=== PATIENT | female | born 1985 | race Caucasian/White ===

== ENCOUNTER 2018-11-09 06:15 | Inpatient (IN) | payer BC, OTHER ==
[2018-11-06 09:40] VITALS: BMI 27.4
[2018-11-09] MEDS ORDERED: PROPOFOL 20 ML ONE ×12 (07:35→10:34)
[2018-11-09] MEDS ORDERED: SUCCINYLCHOLINE CHLORIDE 200 MG/10 ML VIAL ONE (07:39)
[2018-11-09] MEDS ORDERED: MIDAZOLAM HCL 2 MG/2 ML SINGLE DOSE VIAL ONE (07:40)
[2018-11-09] MEDS ORDERED: HEPARIN NA (PORCINE) 5,000 UNITS/ML 1ML VIAL ONE (07:52)
[2018-11-09] MEDS ORDERED: THROMBIN (BOVINE) 5,000 UNIT VIAL TP ONE ×2 (07:52→10:47)
[2018-11-09] MEDS ORDERED: BENZOIN TINCTURE SWABSTICK TP ONE (07:52)
[2018-11-09] MEDS ORDERED: ONDANSETRON 4 MG/2 ML VIAL IVPUSH PRN ×2 (07:59→11:55)
--- NOTE | 2018-11-09 08:34 | PN ---
Progress Note (short form) - Note Progress Note: 33F s/p C6-C7 anterior cervical discectomy and instrumented fusion POD #0. -Admit to ICU x 24 hrs. for airway observation; OK to discharge home or downgrade to floor 11/10/2018 if airway stable. -Maintain head of bed 45-60 degrees. -Pain medication: per anaesthesia team; oral meds (oxycodone preferred), no HULLER OPERATOR ; NO NSAID's. -DVT PPx: -Mechanical only: SMITA's, SCD's. -Post-op Ancef x 2 doses. -f/u AM labs. -Incentive spirometry. -PT/OT/Rehab, OOB. -WBAT B/L UE & LE. -d/c Copeland catheter at midnight; f/u TOV (8 hours max). -Keep dressing clean & dry. -No heavy lifting (>5 lbs), bending or twisting x 6 months post op. -Start with soft diet; advance diet as tolerated. -B/L UE & LE NV checks. -Care per ICU & primary medical hospitalist teams. -Discharge planning: f/u [facility] [place] office 11/19/2018; call for appointment; . Roosevelt Chinchilla MD (Orthopaedic Surgery).
--- NOTE | 2018-11-09 08:37 | OP ---
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 C6-C7 anterior cervical discectomy. 2. C6-C7 anterior instrumentation. 3. C6-C7 anterior arthrodesis. 4. Bone autograft. 5. Bone allograft. 6. Intra-operative neural monitoring. 7. Intra-operative biplanar fluoroscopy Post-Operative Diagnosis: Same as Pre-op Surgeon: Roosevelt Chinchilla Caterpillar Operator: Leonardo Chinchilla Anesthesiologist/FELT HAT FLANGING OPERATOR: Amena Jacques Anesthesia: General Specimens Removed: C6-C7 disc Estimated Blood Loss (mls): 20 Fluid Volume Replaced (mls): 1,000 (Crystalloid) Operative Report Dictated: Yes
[2018-11-09] MEDS ORDERED: VANCOMYCIN 1,000 MG VIAL (RESTRICTED TO ID ONLY) ONE (09:00)
[2018-11-09] MEDS ORDERED: VANCOMYCIN 1,000 MG VIAL (RESTRICTED TO ID ONLY) IVPB ONE (09:00)
[2018-11-09] MEDS ORDERED: ceFAZolin SODIUM 1 GM VIAL ONE ×2 (09:16→09:57)
[2018-11-09] MEDS ORDERED: DEXAMETHASONE SOD PHOSPHATE 4 MG/1 ML VIAL ONE (09:25)
[2018-11-09] MEDS ORDERED: ONDANSETRON 4 MG/2 ML VIAL ONE (09:25)
[2018-11-09] MEDS ORDERED: ceFAZolin SODIUM 1 GM VIAL IVPB ONE (09:27)
[2018-11-09] MEDS ORDERED: HYDROmorphone HCl 2 MG/ML VIAL ONE (10:07)
[2018-11-09] MEDS ORDERED: TRANEXAMIC ACID 1000 MG/10 ML VIAL ONE (10:20)
[2018-11-09] MEDS ORDERED: GELATIN, ABSORBABLE 12-7MM EACH SPONGE TP ONE (10:47)
[2018-11-09] MEDS ORDERED: ADENOSINE 6 MG/2 ML VIAL IVPUSH ONE (11:50)
[2018-11-09] MEDS ORDERED: oxyCODONE HCL 5 MG TABLET PO PRN (11:55)
[2018-11-09] MEDS ORDERED: LACTATED RINGERS SOLUTION 1,000 ML IV SCH (12:00)
[2018-11-09] MEDS ORDERED: ACETAMINOPHEN 1000 MG/100 ML VIAL (NON FORMULARY) IVPB PRN (12:30)
[2018-11-09] MEDS: LACTATED RINGERS SOLUTION 1,000 ML IV SCH ×2 (12:30→22:50)
--- NOTE | 2018-11-09 13:01 | CONSULT ---
Consult Consult Specialty:: ICU Referred by:: Dr. Chinchilla Reason for Consultation:: Post-op care - History of Present Illness History of Present Illness: 33 yr old woman with bipolar disorder POD#0 from cervical disectomy being monitered in the ICU for any airway instability. Pt was extubated in the - Past Medical History ...LMP: 10/21/18 - Alcohol/Substance Use Hx Alcohol Use: Yes (SOCIAL) - Smoking History Smoking history: Never smoked Home Medications - Allergies Allergies/Adverse Reactions: Allergies Allergy/AdvReac Type Severity Reaction Status Date / Time No Known Allergies Allergy Verified 11/06/18 09:40 - Home Medications Home Medications: Ambulatory Orders Lamotrigine [Lamictal] 200 mg PO HS 11/06/18 Lurasidone HCl [Latuda] 40 mg PO HS 11/06/18 Multivitamin [Multiple Vitamins] 1 each PO HS 11/06/18 Physical Exam Vital Signs: Vital Signs Temperature 98 F 11/09/18 07:12 Pulse Rate 70 11/09/18 07:12 Respiratory Rate 18 11/09/18 07:12 Blood Pressure 121/67 11/09/18 07:12 O2 Sat by Pulse Oximetry (%) 98 11/09/18 07:12
--- NOTE | 2018-11-09 13:46 | OP ---
DATE OF OPERATION: 11/09/2018 SURGEON: Roosevelt Chinchilla MD TRUCK DRIVER HEAVY: Leonardo Chinchilla MD PREOPERATIVE DIAGNOSIS: 1. C6-C7 intervertebral disk disorder (herniation) with associated A. Myelopathy. B. Radiculopathy. 2. Cervical spinal stenosis with neurogenic claudication. 3. Cervical kyphosis. 4. Segmental instability. 5. Disk osteophyte complex C6-C7. POSTOPERATIVE DIAGNOSIS: 1. C6-C7 intervertebral disk disorder (herniation) with associated A. Myelopathy. B. Radiculopathy. 2. Cervical spinal stenosis with neurogenic claudication. 3. Cervical kyphosis. 4. Segmental instability. 5. Disk osteophyte complex C6-C7 SURGICAL PROCEDURE: 1. C6-C7 discectomy. 2. C6, C7 partial corpectomies. 3. C6-C7 anterior arthrodesis. 4. Insertion of biomechanical device C6-C7. 5. C6-C7 anterior instrumentation. 6. Bone autograft. 7. Bone allograft. 8. Intraoperative biplanar fluoroscopy. 9. Intraoperative neural monitoring. ANESTHESIA: General endotracheal tube anesthesia. POSITION: Supine. INCISION: Right oblique anterior at level of cricothyroid interval. ESTIMATED BLOOD LOSS: 20cc. INTRAVENOUS FLUID: Crystalloid, 1L. SPECIMENS: C6-C7 disc. DRAINS: None. COMPLICATIONS: None. URINE OUTPUT: See anesthesia record. BACTERIOLOGY: None. CLOSURE: 2-0 Vicryl and 3-0 Biosyn absorbable suture. INDICATIONS: The patient is a 33-year-old female who was indicated for anterior cervical decompression and instrumented fusion to prevent the progression of already worsening neurological decline. The patient was identified in the holding area by her arm band. A long discussion was held with the patient (in the presence of her family) regarding the risks, benefits, and alternatives of the above- named procedure. The risks include, but are not limited to: Pain, bleeding, infection, damage to surrounding structures (including nerves, blood vessels, skin, ligaments, tendons, and bone), dysphagia, dysphonia, nerve palsy, wound complications, pseudarthrosis, failure of fusion, failure of hardware/implants/ reduction, need for further surgery, blood clots, myocardial infarction, pulmonary embolism, cerebrovascular event, anesthesia complications, neurological injury, loss of function, and . Benefits as mentioned above. Alternatives include no surgery. All questions were answered. The patient understood and agreed to the procedure. Informed consent was obtained, witnessed, and verified. The patient was taken to the operating room after being seen by the anesthesia and nursing staff. PROCEDURE: The patient was brought into the operating room, placed on the OR table and secured with a safety strap. Consent and the operative site was again verified with the patient and nursing and anesthesia staff. Anesthesia was then administered without complications including 2 g of IV Ancef, 1 g of IV vancomycin, and 1 g of TXA. A time-out was then done led by , the attending surgeon. The intra-operative neural monitoring team measured pre-positional SSEP & MEP readings. The patient was positioned in the supine position with arms tucked and placed under gentle traction using tape over her shoulders. All bony prominences were very well padded. A bump was placed beneath the scapulae to facilitate extension of the patients neck. The cricothyroid interval was palpated, and a deep neck crease in the lines of Filippo at this level was targeted for incision. A C-arm fluoroscopy unit was positioned perpendicularly to the table and maintained at the level of the head, except when needed. Intra-operative neural monitoring revealed no change between pre- and post- positional SSEP & MEP baseline readings. The operative site was then prepped and draped in the standard sterile fashion using betadine prep and scrub, wiped off with alcohol, and Duraprep applied. Pre-operative imaging was available for intra-operative evaluation. Time-out was again done, and the case began. An oblique anterior incision was made on the right side of the patients neck in the lines of Filippo in standard fashion. Dissection was carried through the investing layer of fascia and finger palpation was used to create a plane lateral to the strap muscles between the carotid sheath and the viscera. Next, the esophagus and trachea were visualized as was the carotid sheath. Hand-held retractors were used to retract these structures safely out of the way, allowing direct access to the anterior cervical spine. The prevertebral fascia overlying the anterior cervical spine was then split using peanut swabs. An 18-gauge spinal needle was bent and used to localize the C6-C7 disc space under fluoroscopy. This helped us target the indicated surgical level. Next, the medial borders of the Longus Coli musculature were gently released over the anterolateral borders of the vertebral bodies and disc spaces using monopolar electrocautery. A self-retaining retractor system was used with the teeth of the blades retracting the bellies of the longus coli muscles, and with the retractors themselves safely retracting the carotid sheath laterally and viscera medially. One 12mm Lincoln pin was then placed into the center of the vertebral body of C6 another into the middle of the C7 vertebral body. The Lincoln pin placement was confirmed via fluorscopy. A Lincoln pin distractor system was applied with no distraction at this stage. Additionally, the distractor barrels served as superior and inferior soft tissue retractors. The microscope was then introduced. Using monopolar electrocautery, the annulus of the C6-C7 disc was incised. The disc was morselized using a curette and excised using a pituitary rongeur. Next, a 40mm smooth italia-tipped alissa was used to perform partial corpectomies of the caudal C6 vertebral body and the cephalad C7 vertebral body. This granted us access to the disc fragment that had migrated behind the C7 vertebral body. The resection of most remaining bone, and the posterior longitudinal ligament (PLL), was achieved utilizing Kerrison rongeur upcuts. A small, angled, ball-tipped probe was utilized to ensure that all PLL complex was free from adhesion to the theca prior to excision. There was no evidence of OPLL. The ball-tipped probe was also used to ensure that the bilateral C6-C7 neuroforaminae were patent. Our decompression of the cervical spine was successfully achieved. At this point, gentle distraction was applied to the Lincoln pin distractor. Next, trial implants were placed into the defect space and a size 9 RTI Fortilink cage was then selected to fit the distracted space. The cage was filled with a combination of autologous bone shavings and demineralized bone matrix putty (IE bone allograft). The cage was then gently tapped into position. This completed the anterior arthrodesis. Lincoln pin distraction was released, allowing ligamentotaxis to provide a snug interference fit of the cage. This was ensured by using a cage-sparks. A 16- mm plate was utilized with 2 proximal and 2 distal screws measuring 12 mm to provide solid fixation. This, too, was demonstrated with a plate-sparks once all instrumentation was satisfactorily seated. The screws were then locked using the plate-screw locking mechanism. Fluoroscopic images in the AP and lateral plane showed implants to be in good position and with good overall alignment of the cervical spine. Copious irrigation was performed, hemostasis was assured, and the wound was closed primarily using 2-0 Vicryl and 3-0 Biosyn sutures. A sterile compressive dressing was applied. Sponge and needle counts were correct at the end of the case, and I, the attending surgeon, was present and scrubbed throughout the case. The patient was then extubated by the anesthesia staff without incident or complications and was then transferred to the recovery room in stable condition having tolerated the procedure well. OVERALL COMMENTS: Overall the case went well. MEP & SSEP signals improved shortly after the decompression was achieved. Roosevelt Chinchilla MD. [id number] MTDD
--- NOTE | 2018-11-09 14:09 | PN ---
Physical Exam: SUBJECTIVE: Patient seen and examined in the ICU s/p surgery. OBJECTIVE: Vital Signs Period Temp Pulse Resp BP Sys/Hall Pulse Ox Last 24 Hr 97.9 F-98.7 F 70-85 14-18 121-141/67-86 98-100 GENERAL: The patient is awake, alert, and fully oriented, in no acute distress. HEAD: Normal with no signs of trauma. EYES: PERRL, extraocular movements intact, sclera anicteric, conjunctiva clear. No ptosis. ENT: surgical dressing intact NECK: Trachea midline, full range of motion, supple. LUNGS: Breath sounds equal, clear to auscultation bilaterally, no wheezes HEART: Regular rate and rhythm ABDOMEN: Soft, nontender, nondistended, normoactive bowel sounds EXTREMITIES: no edema. NEUROLOGICAL: Normal speech, gait not observed. PSYCH: Normal mood, normal affect. SKIN: Warm, dry, normal turgor, no rashes or lesions noted Laboratory Results - last 24 hr 11/09/18 11/09/18 11/09/18 06:36 06:36 08:00 Serum , Qual Negative Blood Type AB POSITIVE AB POSITIVE Antibody Screen Negative Active Medications Generic Name Dose Route Start Last Admin Trade Name Freq PRN Reason Stop Dose Admin Acetaminophen 1,000 mg 11/09/18 12:30 Ofirmev Injection - IVPB Q6H PRN PAIN OR FEVER Hydromorphone HCl 1 mg 11/09/18 12:30 Dilaudid Vial - IVPB Q4H PRN PAIN LEVEL 6-10 Lactated Ringer's 1,000 mls @ 75 mls/hr 11/09/18 08:00 Lactated Ringers Solution IV ASDIR SERENA Cefazolin Sodium 1 gm in 50 mls @ 100 mls/hr 11/09/18 16:00 Ancef 1 Gm Premixed Ivpb - IVPB 11/10/18 00:29 Q8H SERENA Lamotrigine 200 mg 11/09/18 22:00 Lamictal - PO HS SERENA Lurasidone HCl 40 mg 11/09/18 22:00 Latuda - PO HS SERENA Ondansetron HCl 4 mg 11/09/18 07:59 Zofran Injection IVPUSH Q6H PRN NAUSEA AND/OR VOMITING Oxycodone HCl 5 mg 11/09/18 11:55 Roxicodone - PO Q4H PRN PAIN LEVEL 1-5 Oxycodone HCl 10 mg 11/09/18 11:55 Roxicodone - PO Q4H PRN PAIN LEVEL 6-10 ASSESSMENT/PLAN: Patient is a 33 year old female s/p c6-c7 anterior cervical discectomy and instrumened fusion POD #0. Currently in ICU for airway monitoring. Surgery C6-C7 anterior cervical discectomy and instrumented fusion POD #0 Per surgery, maintain HOG 45-60 degrees Post op antibiotics x 2 doses Encourage incentive spirometer bowel regimen WBAT as tolerated d/c sozua per surgery No NSAIDs. soft diet as tolerated fen tolerating PO soft diet labs in a.m. prophy SCDs Discharge planning in a.m. likely with a surgical follow up with Dr. Chinchilla. Visit type - Emergency Visit Emergency Visit: Yes ED Registration Date: 11/09/18 Care time: The patient presented to the Emergency Department on the above date and was hospitalized for further evaluation of their emergent condition. - New Patient This patient is new to me today: Yes Date on this admission: 11/09/18 - Critical Care Critical Care patient: No - Discharge Referral Referred to [facility] Med P.C.: No
[2018-11-09] MEDS: oxyCODONE HCL 5 MG TABLET PO PRN (15:29)
[2018-11-09] MEDS: CEFAZOLIN 1 GM/D5W 1 GM/50 ML BAG IVPB SCH (16:46)
[2018-11-09] MEDS ORDERED: LURASIDONE HCL 40 MG TABLET PO SCH (22:00)
[2018-11-09] MEDS: HYDROmorphone HCl 2 MG/ML VIAL IVPB PRN (22:46)
[2018-11-10] MEDS: CEFAZOLIN 1 GM/D5W 1 GM/50 ML BAG IVPB SCH (00:21)
[2018-11-10] MEDS: DOCUSATE SODIUM 100 MG CAPSULE (FP) PO SCH ×3 (05:54→21:26)
[2018-11-10 06:51] LABS: BASO % 0.1 % (0-2.0); HEMOGLOBIN 11.5 GM/dL (10.7-15.3); LYMPH % 12.5 % (8-40); MCH 27.3 pg (25.7-33.7); MCHC 32.9 g/dl (32.0-36.0); MEAN CELL VOLUME 83.1 fl (80-96); MEAN PLT VOLUME 10.4 fl (7.5-11.1); MONO % 5.4 % (3.8-10.2); PLATELET COUNT 205 K/MM3 (134-434); RBC 4.21 M/mm3 (3.60-5.2); RDW 12.8 % (11.6-15.6); WHITE BLOOD COUNT 14.1 K/mm3 (4.0-10.0)
[2018-11-10 07:35] LABS: ANION GAP 7 MMOL/L (8-16); BLOOD UREA NITROGEN 8 mg/dL (7-18); CALCIUM 8.5 mg/dL (8.5-10.1); CHLORIDE 104 mmol/L (98-107); CO2 27 mmol/L (21-32); CREATININE 0.7 mg/dL (0.55-1.3); GLUCOSE,RANDOM 96 mg/dL (74-106); MAGNESIUM 2.2 mg/dL (1.8-2.4); PHOSPHOROUS 3.7 mg/dL (2.5-4.9); POTASSIUM 4.1 mmol/L (3.5-5.1); SODIUM 139 mmol/L (136-145)
[2018-11-10] MEDS: HYDROmorphone HCl 2 MG/ML VIAL IVPB PRN (07:39)
[2018-11-10] MEDS: LACTATED RINGERS SOLUTION 1,000 ML IV SCH (08:00)
--- NOTE | 2018-11-10 08:59 | PN ---
Physical Exam: SUBJECTIVE: Patient seen this morning and reports she has some pain at the site. She is able to tolerate food and walking. No other complaints. OBJECTIVE: Vital Signs Temperature 98.4 F 11/10/18 10:00 Pulse Rate 68 11/10/18 10:00 Respiratory Rate 14 11/10/18 10:00 Blood Pressure 123/61 11/10/18 10:00 O2 Sat by Pulse Oximetry (%) 100 11/10/18 09:00 GENERAL: The patient is awake, alert, and fully oriented, in no acute distress. HEAD: head atrauamtic EYES: PERRL, extraocular movements intact, sclera anicteric, conjunctiva clear. No ptosis. NECK: collar around neck LUNGS: Breath sounds equal, clear to auscultation bilaterally, HEART: Regular rate and rhythm, S1, S2 without murmur, rub or gallop. ABDOMEN: Soft, nontender, nondistended, normoactive bowel sounds, EXTREMITIES: 2+ pulses, warm, well-perfused, no edema. NEUROLOGICAL: speech normal, B/L LE sensation intact, ROM intact PSYCH: Normal mood, normal affect. SKIN: Warm, dry, normal turgor, no rashes or lesions noted CBCD WBC 14.1 K/mm3 (4.0-10.0) H 11/10/18 05:30 RBC 4.21 M/mm3 (3.60-5.2) 11/10/18 05:30 Hgb 11.5 GM/dL (10.7-15.3) 11/10/18 05:30 Hct 35.0 % (32.4-45.2) 11/10/18 05:30 MCV 83.1 fl (80-96) 11/10/18 05:30 MCHC 32.9 g/dl (32.0-36.0) 11/10/18 05:30 RDW 12.8 % (11.6-15.6) 11/10/18 05:30 Plt Count 205 K/MM3 (134-434) 11/10/18 05:30 MPV 10.4 fl (7.5-11.1) 11/10/18 05:30 CMP Sodium 139 mmol/L (136-145) 11/10/18 05:30 Potassium 4.1 mmol/L (3.5-5.1) 11/10/18 05:30 Chloride 104 mmol/L (98-107) 11/10/18 05:30 Carbon Dioxide 27 mmol/L (21-32) 11/10/18 05:30 Anion Gap 7 MMOL/L (8-16) L 11/10/18 05:30 BUN 8 mg/dL (7-18) 11/10/18 05:30 Creatinine 0.7 mg/dL (0.55-1.3) 11/10/18 05:30 Creat Clearance w eGFR 97.60 (>60) 11/10/18 05:30 Calcium 8.5 mg/dL (8.5-10.1) 11/10/18 05:30 Active Medications Acetaminophen (Ofirmev Injection -) 1,000 mg IVPB Q6H PRN PRN Reason: PAIN OR FEVER Docusate Sodium (Colace -) 100 mg PO TID [facility] Last Admin: 11/10/18 05:54 Dose: 100 mg Hydromorphone HCl (Dilaudid Vial -) 1 mg IVPB Q4H PRN PRN Reason: PAIN LEVEL 6-10 Last Admin: 11/10/18 07:39 Dose: 1 mg Lactated Ringer's (Lactated Ringers Solution) 1,000 mls @ 75 mls/hr IV ASDIR [facility] Last Admin: 11/09/18 22:50 Dose: 75 mls/hr Lamotrigine (Lamictal -) 200 mg PO [facility] Last Admin: 11/09/18 21:20 Dose: Not Given Lurasidone HCl (Latuda -) 40 mg PO [facility] Last Admin: 11/09/18 21:20 Dose: Not Given Ondansetron HCl (Zofran Injection) 4 mg IVPUSH Q6H PRN PRN Reason: NAUSEA AND/OR VOMITING Oxycodone HCl (Roxicodone -) 5 mg PO Q4H PRN PRN Reason: PAIN LEVEL 1-5 Last Admin: 11/09/18 20:35 Dose: 5 mg Oxycodone HCl (Roxicodone -) 10 mg PO Q4H PRN PRN Reason: PAIN LEVEL 6-10 Last Admin: 11/09/18 15:29 Dose: 10 mg Polyethylene Glycol (Miralax (For Daily Use) -) 17 gm PO DAILY [facility] Senna (Senna -) 2 tab PO HS SERENA ASSESSMENT/PLAN: Patient is a 33 y/o female with a history of bipolar disorder who is post op for cervical discectomy. Neuro - A&O x3 - cervical discectomy C6-C7 - pain control with dilaudid and oxycodone - patient able to walk with PT Cardio - vitals stable Pulm - stable - continue incentive spirometer GI - tolerating diet - continue bowel regimine Heme - SCD's for DVT ppx Dispo: able to walk with PT, can be transferred to med/surg Visit type - Emergency Visit Emergency Visit: No - New Patient This patient is new to me today: Yes Date on this admission: 11/10/18 - Critical Care Critical Care patient: Yes Total Critical Care Time (in minutes): 35 Critical Care Statement: The care of this patient involved high complexity decision making to prevent further life threatening deterioration of the patient 's condition and/or to evaluate & treat vital organ system(s) failure or risk of failure.
[2018-11-10] MEDS ORDERED: POLYETHYLENE GLYCOL 3350 119 GM BTL PO SCH (10:00)
--- NOTE | 2018-11-10 10:18 | PN ---
Progress Note, Physician Chief Complaint: s/p ACDF under general anesthesia History of Present Illness: post op day one - Current Medication List Current Medications: Active Medications Acetaminophen (Ofirmev Injection -) 1,000 mg IVPB Q6H PRN PRN Reason: PAIN OR FEVER Docusate Sodium (Colace -) 100 mg PO TID [facility] Last Admin: 11/10/18 05:54 Dose: 100 mg Hydromorphone HCl (Dilaudid Vial -) 1 mg IVPB Q4H PRN PRN Reason: PAIN LEVEL 6-10 Last Admin: 11/10/18 07:39 Dose: 1 mg Lactated Ringer's (Lactated Ringers Solution) 1,000 mls @ 75 mls/hr IV ASDIR [facility] Last Admin: 11/10/18 08:00 Dose: 75 mls/hr Lamotrigine (Lamictal -) 200 mg PO [facility] Last Admin: 11/09/18 21:20 Dose: Not Given Lurasidone HCl (Latuda -) 40 mg PO [facility] Last Admin: 11/09/18 21:20 Dose: Not Given Ondansetron HCl (Zofran Injection) 4 mg IVPUSH Q6H PRN PRN Reason: NAUSEA AND/OR VOMITING Oxycodone HCl (Roxicodone -) 5 mg PO Q4H PRN PRN Reason: PAIN LEVEL 1-5 Last Admin: 11/09/18 20:35 Dose: 5 mg Oxycodone HCl (Roxicodone -) 10 mg PO Q4H PRN PRN Reason: PAIN LEVEL 6-10 Last Admin: 11/09/18 15:29 Dose: 10 mg Polyethylene Glycol (Miralax (For Daily Use) -) 17 gm PO DAILY [facility] Last Admin: 11/10/18 09:36 Dose: 17 grams Senna (Senna -) 2 tab PO [facility] - Objective Vital Signs: Vital Signs Temperature 97 F L 11/10/18 02:50 Pulse Rate 73 11/10/18 09:12 Respiratory Rate 17 11/10/18 09:12 Blood Pressure 117/67 11/10/18 09:12 O2 Sat by Pulse Oximetry (%) 100 11/10/18 09:00 Constitutional: Yes: Well Nourished Cardiovascular: Yes: WNL Respiratory: Yes: WNL Gastrointestinal: Yes: WNL Labs: CBC, BMP 11/10/18 05:30 11/10/18 05:30 Assessment/Plan Patient pain controlled by IV analgesia, po did not work according to patient. Advised patient to take PO analgesia before pain gets too severe and ask for IV for breakthrough. Also suggest adding Tylenol for adjunct pain control. No nausea or other adverse anesthetic complications. Depf of anesthesia will sign off care at this time.
--- NOTE | 2018-11-10 12:20 | PN ---
Teaching Attending Note Name of Resident: Danya Giang ATTENDING PHYSICIAN STATEMENT I saw and evaluated the patient. I reviewed the resident's note and discussed the case with the resident. I agree with the resident's findings and plan as documented. SUBJECTIVE: Patient seen and examined in the ICU. Awake and alert. Pain seems controlled. Soft collar is in place. OBJECTIVE: Intake & Output 11/07/18 11/08/18 11/09/18 11/10/18 23:59 23:59 23:59 23:59 Intake Total 2440 1000 Output Total 1220 700 Balance 1220 300 Weight 170 lb Last Vital Signs Temp Pulse Resp BP Pulse Ox 98.4 F 68 14 123/61 100 11/10/18 10:00 11/10/18 10:00 11/10/18 10:00 11/10/18 10:00 11/10/18 09:00 Active Medications Acetaminophen (Ofirmev Injection -) 1,000 mg IVPB Q6H PRN PRN Reason: PAIN OR FEVER Docusate Sodium (Colace -) 100 mg PO TID [facility] Last Admin: 11/10/18 05:54 Dose: 100 mg Hydromorphone HCl (Dilaudid Vial -) 1 mg IVPB Q4H PRN PRN Reason: PAIN LEVEL 6-10 Last Admin: 11/10/18 07:39 Dose: 1 mg Lactated Ringer's (Lactated Ringers Solution) 1,000 mls @ 75 mls/hr IV ASDIR [facility] Last Admin: 11/10/18 08:00 Dose: 75 mls/hr Lamotrigine (Lamictal -) 200 mg PO [facility] Last Admin: 11/09/18 21:20 Dose: Not Given Lurasidone HCl (Latuda -) 40 mg PO [facility] Last Admin: 11/09/18 21:20 Dose: Not Given Ondansetron HCl (Zofran Injection) 4 mg IVPUSH Q6H PRN PRN Reason: NAUSEA AND/OR VOMITING Oxycodone HCl (Roxicodone -) 5 mg PO Q4H PRN PRN Reason: PAIN LEVEL 1-5 Last Admin: 11/09/18 20:35 Dose: 5 mg Oxycodone HCl (Roxicodone -) 10 mg PO Q4H PRN PRN Reason: PAIN LEVEL 6-10 Last Admin: 11/09/18 15:29 Dose: 10 mg Polyethylene Glycol (Miralax (For Daily Use) -) 17 gm PO DAILY [facility] Last Admin: 11/10/18 09:36 Dose: 17 grams Senna (Senna -) 2 tab PO HS [facility] GENERAL: awake, alert, and fully oriented, in no acute distress. HEAD: head atrauamtic EYES: sclera anicteric, conjunctiva clear. No ptosis. NECK: collar around neck LUNGS: Breath sounds equal, clear to auscultation bilaterally, HEART: Regular rate and rhythm, S1, S2 without murmur, rub or gallop. ABDOMEN: Soft, nontender, nondistended, normoactive bowel sounds, EXTREMITIES: 2+ pulses, warm, well-perfused, no edema. NEUROLOGICAL: speech normal, B/L LE sensation intact, ROM intact PSYCH: Normal mood, normal affect. SKIN: Warm, dry, normal turgor, no rashes or lesions noted Laboratory Results - last 24 hr 11/10/18 11/10/18 05:30 05:30 WBC 14.1 H RBC 4.21 Hgb 11.5 Hct 35.0 MCV 83.1 MCH 27.3 MCHC 32.9 RDW 12.8 Plt Count 205 MPV 10.4 Absolute Neuts (auto) 11.5 H Neutrophils % 82.0 Lymphocytes % 12.5 Monocytes % 5.4 Eosinophils % 0.0 Basophils % 0.1 Nucleated RBC % 0 Sodium 139 Potassium 4.1 Chloride 104 Carbon Dioxide 27 Anion Gap 7 L BUN 8 Creatinine 0.7 Creat Clearance w eGFR 97.60 Random Glucose 96 Calcium 8.5 Phosphorus 3.7 Magnesium 2.2 ASSESSMENT/PLAN: POD #1: Cervical discectomy C6-C7 Bipolar D/O Pain control O2 as needed Incentive Spirometry VTE prophylaxis PO as tolerated PT / ambulate Floor Dr Navarrete
[2018-11-10] MEDS: oxyCODONE HCL 5 MG TABLET PO PRN ×3 (12:24→21:24)
--- NOTE | 2018-11-10 16:03 | PATH ---
Surgical Pathology Report Patient Name: HILDA THOMASON [facility]. Rec. #: [id number] /Age/Gender: 1985 (Age: 33) / F Account: [id number] Location: [facility] Taken: 11/09/2018 Received: 11/09/2018 Reported: 11/10/2018 Physicians: Roosevelt Chinchilla M.D. Specimen(s) Received C6-C7 DISC Clinical History Cervical disc disorder Final Diagnosis INTERVERTEBRAL DISC, C6-7, EXCISION: PORTIONS OF INTERVERTEBRAL DISC, ALONG WITH SMALL FRAGMENTS OF BONE AND CARTILAGE. Electronically Signed Javan Santamaria M.D. Gross Description Received in formalin labeled "disc C6-C7," is a 3.0 x 2.3 x 0.4 cm aggregate of begum fragments of fibrocartilaginous tissue. The specimen is submitted in toto in one cassette. /11/09/2018 saudi/11/09/2018
--- NOTE | 2018-11-10 18:17 | PN ---
Physical Exam: SUBJECTIVE: Patient seen and examined 24HR events: -no acute events -OOB to chair OBJECTIVE: Vital Signs Period Temp Pulse Resp BP Sys/Hall Pulse Ox Last 24 Hr 97 F-98.6 F 63-92 14-24 108-134/61-83 100-100 GENERAL: The patient is awake, alert, and fully oriented, in no acute distress. HEAD: Normal with no signs of trauma. EYES: PERRL, extraocular movements intact, sclera anicteric, conjunctiva clear. No ptosis. ENT: Ears normal, nares patent, oropharynx clear without exudates, moist mucous membranes. NECK: Trachea midline, full range of motion, supple. LUNGS: Breath sounds equal, clear to auscultation bilaterally, no wheezes, no crackles, no accessory muscle use. HEART: Regular rate and rhythm, S1, S2 without murmur, rub or gallop. ABDOMEN: Soft, nontender, nondistended, normoactive bowel sounds, no guarding, no rebound, no hepatosplenomegaly, no masses. EXTREMITIES: 2+ pulses, warm, well-perfused, no edema. NEUROLOGICAL: Cranial nerves II through XII grossly intact. Normal speech, gait not observed. PSYCH: Normal mood, normal affect. SKIN: Warm, dry, normal turgor, no rashes or lesions noted Laboratory Results - last 24 hr 11/10/18 11/10/18 05:30 05:30 WBC 14.1 H RBC 4.21 Hgb 11.5 Hct 35.0 MCV 83.1 MCH 27.3 MCHC 32.9 RDW 12.8 Plt Count 205 MPV 10.4 Absolute Neuts (auto) 11.5 H Neutrophils % 82.0 Lymphocytes % 12.5 Monocytes % 5.4 Eosinophils % 0.0 Basophils % 0.1 Nucleated RBC % 0 Sodium 139 Potassium 4.1 Chloride 104 Carbon Dioxide 27 Anion Gap 7 L BUN 8 Creatinine 0.7 Creat Clearance w eGFR 97.60 Random Glucose 96 Calcium 8.5 Phosphorus 3.7 Magnesium 2.2 Active Medications Generic Name Dose Route Start Last Admin Trade Name Freq PRN Reason Stop Dose Admin Acetaminophen 1,000 mg 11/09/18 12:30 Ofirmev Injection - IVPB Q6H PRN PAIN OR FEVER Docusate Sodium 100 mg 11/10/18 06:00 11/10/18 14:25 Colace - PO 100 mg TID SERENA Administration Hydromorphone HCl 1 mg 11/09/18 12:30 11/10/18 07:39 Dilaudid Vial - IVPB 1 mg Q4H PRN Administration PAIN LEVEL 6-10 Lactated Ringer's 1,000 mls @ 75 mls/hr 11/09/18 08:00 11/10/18 08:00 Lactated Ringers Solution IV 75 mls/hr ASDIR SERENA Administration Lamotrigine 200 mg 11/09/18 22:00 11/09/18 21:20 Lamictal - PO Not Given HS SERENA Lurasidone HCl 40 mg 11/09/18 22:00 11/09/18 21:20 Latuda - PO Not Given HS SERENA Ondansetron HCl 4 mg 11/09/18 07:59 Zofran Injection IVPUSH Q6H PRN NAUSEA AND/OR VOMITING Oxycodone HCl 5 mg 11/09/18 11:55 11/09/18 20:35 Roxicodone - PO 5 mg Q4H PRN Administration PAIN LEVEL 1-5 Oxycodone HCl 10 mg 11/09/18 11:55 11/10/18 16:42 Roxicodone - PO 10 mg Q4H PRN Administration PAIN LEVEL 6-10 Polyethylene Glycol 17 gm 11/10/18 10:00 11/10/18 09:36 Miralax (For Daily Use) - PO 17 grams DAILY SERENA Administration Senna 2 tab 11/10/18 22:00 Senna - PO HS SERENA ASSESSMENT/PLAN: 33 year old female s/p c6-c7 anterior cervical discectomy and instrumened fusion POD # 1 Post op antibiotics x 2 doses completed incentive spirometer q1H bowel regimen: senna/coalce/miralax WBAT as tolerated No NSAIDs. pain control with oxycodone FEN tolerating PO soft diet PSYCH: depression -continue latuda and lamictal prophy: SCDs while in bed [facility] Can most likely be d/tabby home on 11/11. Pt to follow up with Dr. Chinchilla in 1 week Code status: Full Problem List - Problems (1) MDD (major depressive disorder) Code(s): F32.9 - MAJOR DEPRESSIVE DISORDER, SINGLE EPISODE, UNSPECIFIED (2) S/P cervical discectomy Code(s): Z98.890 - OTHER SPECIFIED POSTPROCEDURAL STATES Visit type - Emergency Visit Emergency Visit: Yes ED Registration Date: 11/09/18 Care time: The patient presented to the Emergency Department on the above date and was hospitalized for further evaluation of their emergent condition. - New Patient This patient is new to me today: Yes Date on this admission: 11/10/18 - Critical Care Critical Care patient: Yes Total Critical Care Time (in minutes): 40 Critical Care Statement: The care of this patient involved high complexity decision making to prevent further life threatening deterioration of the patient 's condition and/or to evaluate & treat vital organ system(s) failure or risk of failure. - Discharge Referral Referred to [facility] Med P.C.: No
[2018-11-10] MEDS ORDERED: ONDANSETRON 4 MG/2 ML VIAL IVPUSH PRN (19:54)
[2018-11-10] MEDS ORDERED: oxyCODONE HCL 5 MG TABLET PO PRN (19:54)
[2018-11-10] MEDS ORDERED: LACTATED RINGERS SOLUTION 1,000 ML IV SCH (19:54)
[2018-11-10] MEDS ORDERED: ACETAMINOPHEN 1000 MG/100 ML VIAL (NON FORMULARY) IVPB PRN (19:54)
[2018-11-10] MEDS ORDERED: HYDROmorphone HCl 2 MG/ML VIAL IVPB PRN (19:54)
[2018-11-10] MEDS ORDERED: LURASIDONE HCL 40 MG TABLET PO SCH (22:00)
[2018-11-10] MEDS ORDERED: lamoTRIgine 100 MG TABLET (FP) PO SCH (22:00)
[2018-11-10] MEDS ORDERED: SENNOSIDES 8.6MG TABLET (FP) PO SCH ×2 (22:00)
[2018-11-11] MEDS: oxyCODONE HCL 5 MG TABLET PO PRN ×3 (02:57→14:19)
[2018-11-11] MEDS: DOCUSATE SODIUM 100 MG CAPSULE (FP) PO SCH ×2 (05:53→14:18)
[2018-11-11 07:27] LABS: HEMATOCRIT 33.7 % (32.4-45.2); HEMOGLOBIN 11.1 GM/dL (10.7-15.3); MCH 27.6 pg (25.7-33.7); MCHC 33.1 g/dl (32.0-36.0); MEAN CELL VOLUME 83.3 fl (80-96); MEAN PLT VOLUME 9.6 fl (7.5-11.1); PLATELET COUNT 191 K/MM3 (134-434); RBC 4.04 M/mm3 (3.60-5.2); RDW 13.2 % (11.6-15.6); WHITE BLOOD COUNT 10.5 K/mm3 (4.0-10.0)
[2018-11-11 07:49] LABS: ALBUMIN 3.2 g/dl (3.4-5.0); ALK PHOS 62 U/L (45-117); ANION GAP 5 MMOL/L (8-16); BILIRUBIN,TOTAL 0.6 mg/dL (0.2-1); BLOOD UREA NITROGEN 7 mg/dL (7-18); CALCIUM 8.4 mg/dL (8.5-10.1); CHLORIDE 104 mmol/L (98-107); CO2 30 mmol/L (21-32); CREATININE 0.7 mg/dL (0.55-1.3); GLUCOSE,RANDOM 86 mg/dL (74-106); MAGNESIUM 1.9 mg/dL (1.8-2.4); POTASSIUM 3.9 mmol/L (3.5-5.1); SGOT/AST 10 U/L (15-37); SGPT/ALT 19 U/L (13-61); SODIUM 139 mmol/L (136-145); TOT PROT 6.1 g/dl (6.4-8.2)
[2018-11-11] MEDS ORDERED: MAGNESIUM OXIDE 400 MG TABLET (FP) PO ONE (09:00)
[2018-11-11] MEDS ORDERED: POTASSIUM CHLORIDE TABS 10 MEQ TABLET.ER (FP) PO ONE (09:00)
[2018-11-11 09:05] VITALS: BP 116/63; PULSE 92; TEMP 99.5
[2018-11-11] MEDS ORDERED: POLYETHYLENE GLYCOL 3350 119 GM BTL PO SCH (10:00)
--- NOTE | 2018-11-11 13:56 | DS ---
Physical Exam: SUBJECTIVE: Patient seen and examined OBJECTIVE: Vital Signs Period Temp Pulse Resp BP Sys/Hall Pulse Ox Last 24 Hr 98.2 F-99.5 F 73-92 16-21 108-133/58-68 100 PHYSICAL EXAM GENERAL: The patient is awake, alert, and fully oriented, in no acute distress. HEAD: Normal with no signs of trauma. EYES: PERRL, extraocular movements intact, sclera anicteric, conjunctiva clear. ENT: Nares patent, oropharynx clear without exudates, moist mucous membranes. NECK: NECK BRACE (SOFT) IN PLACE LUNGS: Breath sounds equal, clear to auscultation bilaterally, no wheezes, no crackles, no accessory muscle use. HEART: Regular rate and rhythm, S1, S2 without murmur, rub or gallop. ABDOMEN: Soft, nontender, nondistended, normoactive bowel sounds, no guarding, no rebound, no hepatosplenomegaly, no masses. EXTREMITIES: 2+ pulses, warm, well-perfused, no edema. NEUROLOGICAL: Normal speech, gait normal. PSYCH: Normal mood, normal affect. SKIN: Warm, dry, normal turgor, no rashes or lesions noted. LABS Laboratory Results - last 24 hr 11/11/18 11/11/18 06:20 06:20 WBC 10.5 H RBC 4.04 Hgb 11.1 Hct 33.7 MCV 83.3 MCH 27.6 MCHC 33.1 RDW 13.2 Plt Count 191 MPV 9.6 Sodium 139 Potassium 3.9 Chloride 104 Carbon Dioxide 30 Anion Gap 5 L BUN 7 Creatinine 0.7 Creat Clearance w eGFR 97.60 Random Glucose 86 Calcium 8.4 L Phosphorus 3.0 Magnesium 1.9 Total Bilirubin 0.6 AST 10 L ALT 19 Alkaline Phosphatase 62 Total Protein 6.1 L Albumin 3.2 L HOSPITAL COURSE: Date of Admission:11/09/18 Date of Discharge: 11/11/18 Minutes to complete discharge: 45 Discharge Summary Reason For Visit: CERVICAL DISC DISORDER Current Active Problems MDD (major depressive disorder) (Acute) S/P cervical discectomy (Acute) Procedures: Principal: s/p C6-C7 anterior cervical discectomy and instrumented fusion Other Procedures: Operative Date: 11/09/18. 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 Operation: 1. C6-C7 anterior cervical discectomy. 2. C6-C7 anterior instrumentation. 3. C6- C7 anterior arthrodesis. 4. Bone autograft. 5. Bone allograft. 6. Intra- operative neural monitoring. 7. Intra-operative biplanar fluoroscopy. Post- Operative Diagnosis: Same as Pre-op. Surgeon: Roosevelt Chinchilla. Personal Investment Adviser: Leonardo Chinchilla. Anesthesiologist/UTILITY AIRCREWMAN: Amena Jacques. Anesthesia: General. Specimens Removed: C6-C7 disc. Estimated Blood Loss (mls): 20. Fluid Volume Replaced (mls): 1,000 (Crystalloid). Operative Report Dictated: Yes Hospital Course: 33 year old female s/p c6-c7 anterior cervical discectomy and instrumented fusion. Post op course uncomplicated and patient deemed stable for discharge on hospital day #2. Condition: Good - Instructions Diet, Activity, Other Instructions: Post Operative Instructions Physical Activity Resume your normal everyday activity as tolerated. No heavy lifting or exercise until seen by your surgeon. You may walk unlimited amounts and climb stairs. You may resume driving the car when you feel safe and comfortable behind the wheel and you are no longer wearing your brace. Do not operate a vehicle while taking narcotic medication. Brace If you had neck surgery, wear surgical collar 23 hr/day. Remove to shower only. Wound Care Keep your incision clean, dry and covered at all times. Apply an occlusive dressing (Saran wrap or Tegaderm) when showering to avoid getting your incision wet. Do not submerge incision or apply ointments or creams. The frankie will be removed in the office in 10-14 days post-op. Diet There are no dietary restrictions. Eat healthy, high-fiber foods. Drink 6-8 glasses of liquid each day. This will assist in keeping your bowels regular. Pain Management You may take Tylenol or acetaminophen. Any pain prescription medication ordered should be taken as prescribed for moderate to severe pain. Call Dr. Roosevelt Chinchilla for any of the following: Severe pain not relieved by medication Fever of 101 or higher Excessive bleeding or drainage on dressing Inability to urinate Any chest pain or shortness of breath, seek Emergency Care. Call the office to confirm a post-operative appointment for 2-3 weeks post-op f/u [facility] 11/19/2018 @ 9:20AM . PATIENT EDUCATION: -Keep dressing clean & dry. -No heavy lifting (>5 lbs), bending or twisting x 6 months post op. -Incentive spirometry (TAKE HOSPITAL SAMPLE HOME) -PT/OT/Rehab, Out of bed -CONTINUE USING SMITA STOCKINGS -Maintain head of bed 45-60 degrees. -Pain medication: oxycodone preferred -NO MOTJAJA ADVIL Disposition: HOME - Home Medications Comprehensive Discharge Medication List: Ambulatory Orders Lamotrigine [Lamictal] 200 mg PO HS 11/06/18 Lurasidone HCl [Latuda] 40 mg PO HS 11/06/18 Multivitamin [Multiple Vitamins] 1 each PO HS 11/06/18 Problem List - Problems (1) MDD (major depressive disorder) Code(s): F32.9 - MAJOR DEPRESSIVE DISORDER, SINGLE EPISODE, UNSPECIFIED (2) S/P cervical discectomy Code(s): Z98.890 - OTHER SPECIFIED POSTPROCEDURAL STATES This patient is new to me today: No Emergency Visit: No Critical Care patient: No - Discharge Referral Referred to [facility] Med [facility] No
== END 2018-11-11 14:55 | disposition home or self-care (01) | DRG 472 ==
LOC: JSAMEDAYSX 06:15 → EDSTATUS 12:00 → JICU 12:27 → J8W 11-10 19:14
PROVIDERS: ADMIT Orthopaedic Surgery Adult Reconstructive Orthopaedic Surgery; ATTEND Nurse Practitioner Family
PROC: 0RB30ZZ Excision of Cervical Vertebral Disc, Open Approach (ICD-10-PCS; 2018-11-09)
PROC: 00NW0ZZ Release Cervical Spinal Cord, Open Approach (ICD-10-PCS; 2018-11-09)
PROC: 4A11X4G Monitoring of Peripheral Nervous Electrical Activity, Intraoperative, External Approach (ICD-10-PCS; 2018-11-09)
PROC: B01BZZZ Fluoroscopy of Spinal Cord (ICD-10-PCS; 2018-11-09)
PROC: 0RG10A0 Fusion of Cervical Vertebral Joint with Interbody Fusion Device, Anterior Approach, Anterior Column, Open Approach (ICD-10-PCS; principal; 2018-11-09 08:00)
DX: M40.292 Other kyphosis, cervical region (principal); M50.023 Cervical disc disorder at C6-C7 level with myelopathy; M50.123 Cervical disc disorder at C6-C7 level with radiculopathy; M48.02 Spinal stenosis, cervical region; M53.2X2 Spinal instabilities, cervical region; M25.78 Osteophyte, vertebrae
CPT/HCPCS: 36415; 80048; 80053; 83735; 84100; 84703; 85025; 85027; 86850; 86900; 86901; 88304-TC; 97116-GP; 97161-GP; J1644